=== PATIENT | female | born 1995 | race Caucasian/White ===

== ENCOUNTER → 2016-11-26 | Outpatient (CLI) | payer MEDICARE, BC, MEDICAID ==
[~2016-11-26] MED LIST: AMLODIPINE BESYL5 MG PO; ARANESP0.04 MG/ML IJ; ARANESP100 MCG/1 IV; ASCORBIC ACID PO; B6-5050 MG PO; CARVEDILOL6.25 MG PO; CLONIDINE0.1 MG PO; COL-RITE100 M1 PO; COLACE100 MG/10 PO; COREG12.5 M1 PO; COREG25 MG PO; COZAAR100 MG PO; DAPTOMYCIN500 MG IV; DUONEB 3 MG/3 ML3 M1 NEB; FERREX 150150 MG PO; FOSRENOL500 MG PO; HEPARIN SO5000 UNIT/ SC; LANSOPRAZOLE15 MG PO; LISINOPRIL10 M1 PO; PEPCID40 MG PO; PHOS LO667 MG PO; PREVACID15 MG PO; PROCARDIA XL60 MG PO; QSYMIA; RENVELA800 MG PO; RIFAMPIN300 MG PO; Rocaltrol0.25 MCG PO; SENNA-LAX8.6 MG PO; SENNA8.6 MG PO; SENSIPAR30 MG PO; TRIPHROCAPS PO; TRIPHROCAPS SOFT1 MG PO; VANCOMYCIN HCL1 GM IV; VITAMIN C250 M2 PO; VITAMIN D32000 I1 PO
[2016-11-26 14:27] LABS: BASO % 0.8 % (0.0-1.0); EOS # 0.2 10*3/uL (0.0-0.4); EOS % 3.1 % (1.0-4.0); HEMATOCRIT 34.8 % (37.0-47.0); HEMOGLOBIN 11.7 g/dl (12.0-16.0); LYMPH # 1.8 10*3/uL (1.3-4.4); LYMPH % 33.7 % (27.0-41.0); MEAN CELL VOLUME 91.8 fl (81.0-99.0); MEAN CORPUSCULAR HGB 30.9 pg (27.0-31.0); MEAN CORPUSCULAR HGB CONC 33.6 g/dl (33.0-37.0); MEAN PLATELET VOLUME 10.2 fl (9.6-12.3); MONO # 0.5 10*3/uL (0.1-1.0); NEUT # 2.7 10*3/uL (2.3-7.9); NEUT % 52.2 % (47.0-73.0); PLATELET COUNT AUTOMATED 249 10*3/uL (130-400); RED BLOOD COUNT 3.79 10*6/uL (4.10-5.10); WHITE BLOOD COUNT 5.2 10*3/uL (4.8-10.8)
[2016-11-26 14:53] LABS: ALBUMIN 2.9 gm/dl (3.1-4.5); BILIRUBIN, TOTAL 0.4 mg/dl (0.2-1.0); POTASSIUM 3.9 mmol/L (3.5-5.1); TOTAL PROTEIN 7.7 gm/dL (6.4-8.2)
[2016-11-26 15:01] LABS: THYROID STIM HORMONE (HS) 1.26 uIU/ml (0.358-4.75)
[2016-11-26 15:02] LABS: VITAMIN D, 25-HYDROXY 31.8 ng/mL (30-100)
[2016-11-26 16:13] LABS: PTH INTACT 3826.4 pg/mL (14.0-72.0)
== END | disposition home or self-care (01) ==
LOC: LAB 13:20
PROVIDERS: Surgery Surgical Oncology
DX: Z01.818 Encounter for other preprocedural examination (principal); N18.6 End stage renal disease; I12.0 Hypertensive chronic kidney disease with stage 5 chronic kidney disease or end stage renal disease; E55.9 Vitamin D deficiency, unspecified; N25.81 Secondary hyperparathyroidism of renal origin; E89.0 Postprocedural hypothyroidism

== ENCOUNTER 2022-12-23 14:58 | Emergency (ER) | payer OTHER, MEDICAID ==
[~2022-12-23] VITALS: Wt 109.8 kg
[2022-12-23 15:33] VITALS: BP 151/92
[2022-12-23 16:34] LABS: BASO # 0.1 10*3/uL (0.0-0.1); BASO % 0.9 % (0.0-1.0); EOS # 0.4 10*3/uL (0.0-0.4); EOS % 5.2 % (1.0-4.0); HEMATOCRIT 38.6 % (37.0-47.0); LYMPH # 1.4 10*3/uL (1.3-4.4); LYMPH % 18.1 % (27.0-41.0); MEAN CELL VOLUME 92.3 fl (81.0-99.0); MEAN CORPUSCULAR HGB 31.8 pg (27.0-31.0); MEAN CORPUSCULAR HGB CONC 34.5 g/dl (33.0-37.0); MEAN PLATELET VOLUME 11.2 fl (9.6-12.3); MONO # 0.8 10*3/uL (0.1-1.0); NEUT # 5.1 10*3/uL (2.3-7.9); NEUT % 65.5 % (47.0-73.0); PLATELET COUNT AUTOMATED 223 10*3/uL (130-400); RED BLOOD COUNT 4.18 10*6/uL (4.10-5.10); RED CELL DISTRI WIDTH 13.2 % (0-14.5); WHITE BLOOD COUNT 7.8 10*3/uL (4.8-10.8)
[2022-12-23 16:57] LABS: ALKALINE PHOSPHATASE 95 U/L (46-116); BUN 17 mg/dl (9-23); CHLORIDE 95 mmol/L (98-107); POTASSIUM 4.4 mmol/L (3.4-5.1); THYROID STIM HORMONE (HS) 0.999 uIU/ml (0.550-4.780); TOTAL PROTEIN 8.3 gm/dL (6.0-8.0)
[2022-12-23 17:01] LABS: SGPT/ALT < 7 U/L (10-49)
[2022-12-23] MEDS ORDERED: CLINDAMYCIN HC300 MG PO (17:07)
[2022-12-23] MEDS ORDERED: HYDROCODONE-AC1 EAC1 PO (17:07)
== END 2022-12-23 17:19 | disposition home or self-care (01) ==
LOC: ED 14:58
PROVIDERS: Student in an Organized Health Care Education/Training Program
DX: K02.9 Dental caries, unspecified (principal); N93.9 Abnormal uterine and vaginal bleeding, unspecified; R21 Rash and other nonspecific skin eruption; I12.0 Hypertensive chronic kidney disease with stage 5 chronic kidney disease or end stage renal disease; N18.6 End stage renal disease; Z99.2 Dependence on renal dialysis; J45.909 Unspecified asthma, uncomplicated; Z88.8 Allergy status to other drugs, medicaments and biological substances; Z98.890 Other specified postprocedural states

== ENCOUNTER 2023-11-14 23:58 | Emergency (ER) | payer MEDICARE ==
[~2023-11-14] VITALS: Ht 149.8 cm; Wt 120.7 kg
[~2023-11-14 23:58] MED LIST changes: +CLINDAMYCIN HC300 MG PO; +HYDROCODONE-AC1 EAC1 PO
[2023-11-15 00:07] VITALS: BP 135/77
[2023-11-15 00:47] LABS: BASO # 0.1 10*3/uL (0.0-0.1); BASO % 0.6 % (0.0-1.0); EOS # 0.4 10*3/uL (0.0-0.4); EOS % 3.7 % (1.0-4.0); HEMATOCRIT 33.1 % (37.0-47.0); LYMPH % 21.4 % (27.0-41.0); MEAN CELL VOLUME 97.4 fl (81.0-99.0); MEAN CORPUSCULAR HGB 31.8 pg (27.0-31.0); MEAN CORPUSCULAR HGB CONC 32.6 g/dl (33.0-37.0); MONO # 0.9 10*3/uL (0.1-1.0); MONO % 9.2 % (3.0-9.0); NEUT # 6.1 10*3/uL (2.3-7.9); NEUT % 64.7 % (47.0-73.0); PLATELET COUNT AUTOMATED 232 10*3/uL (130-400); RED CELL DISTRI WIDTH 13.9 % (0-14.5); WHITE BLOOD COUNT 9.5 10*3/uL (4.8-10.8)
[2023-11-15 01:07] LABS: POTASSIUM 4.6 mmol/L (3.4-5.1)
[2023-11-15] MEDS ORDERED: MEPERIDINE HYDROCHLORIDE 25 MG/1 ML VIAL IM ONE (02:05)
== END 2023-11-15 02:24 | disposition home or self-care (01) ==
LOC: ED 23:58
PROVIDERS: Internal Medicine
DX: N92.0 Excessive and frequent menstruation with regular cycle (principal); D50.0 Iron deficiency anemia secondary to blood loss (chronic); I10 Essential (primary) hypertension; J45.909 Unspecified asthma, uncomplicated; Z88.8 Allergy status to other drugs, medicaments and biological substances; Z98.890 Other specified postprocedural states

== ENCOUNTER → 2025-03-17 | Outpatient (CLI) | payer MEDICARE ==
[2025-03-17 08:01] LABS: BUN 31.0 mg/dl (9-23); LDL CHOLESTEROL 79.0 mg/dL (9-159); SGPT/ALT 21.0 U/L (5-49)
== END | disposition home or self-care (01) ==
LOC: LAB 07:18
PROVIDERS: ATTEND Family Medicine
DX: N18.6 End stage renal disease (principal); Z13.6 Encounter for screening for cardiovascular disorders